=== PATIENT | female | born 1980 | race Caucasian/White ===

== ENCOUNTER 2017-11-11 20:11 | Emergency (ER) | payer BC ==
[~2017-11-11] VITALS: Ht 165.1 cm; Wt 104.5 kg
[2017-11-11 20:11] VITALS: BP 119/79; PULSE 100; RESP 16; TEMP 98.3; O2SAT 98
--- NOTE | 2017-11-11 21:55 | PD ---
HPI Chief Complaint: Cold / Flu Symptoms Time Seen by Provider: 21:54 Travel History International Travel<30 days: No Contact w/Intl Traveler<30days: No Traveled to known affect area: No History of Present Illness HPI 37-year-old female presents to the emergency department for evaluation of nasal congestion, facial pain, body aches worsening over last 2 days. Patient has a subjective fever. Patient denies any nausea or vomiting. Denies any chest pain or tightness. She has no other symptoms to report at this time. [facility] Past Medical History Medical History: Denies Significant Hx ?: Not Past Surgical History Hysterectomy: Yes Social History Tobacco Use: No Allergies-Medications (Allergen,Severity, Reaction): Coded Allergies: No Known Allergies (Unverified , 11/11/17) Reported Meds & Prescriptions Reported Meds & Active Scripts Active Mometasone Nasal Bartley 50 Mcg/Act Bartley 2 Bartley EACH NARE DAILY Augmentin (Amoxicillin-Clavulanate) 875-125 Mg Tab 1 Tab PO BID 10 Days Review of Systems Except as stated in HPI: all other systems reviewed are Neg Physical Exam Narrative GENERAL: Well-nourished, well-developed female patient in no acute distress SKIN: Focused skin assessment warm/dry. HEAD: Normocephalic. Tenderness elicited to palpation of the maxillary sinuses. EYES: No scleral icterus. No injection or drainage. ENT: Mucosa pink and moist. Mild erythema without exudates. No uvular edema. No uvular, palatal, or tonsillar deviation. Airway patent. Nasal turbinates appear inflamed without nasal blood, purulent drainage or septal hematoma. NECK: Supple, trachea midline. No JVD or lymphadenopathy. CARDIOVASCULAR: Regular rate and rhythm without murmurs, gallops, or rubs. RESPIRATORY: Breath sounds equal bilaterally. No accessory muscle use. GASTROINTESTINAL: Abdomen soft, non-tender, nondistended. MUSCULOSKELETAL: No cyanosis, or edema. BACK: Nontender without obvious deformity. No CVA tenderness. Data Data Last Documented VS Orders Orders Influenzae A/B Antigen (11/11/17 22:02) Chest, Single Ap (11/11/17 ) Albuterol Neb (Albuterol Neb) (11/11/17 22:15) Ed Discharge Order (11/11/17 22:53) MDM Medical Decision Making Medical Screen Exam Complete: Yes Emergency Medical Condition: Yes Medical Record Reviewed: Yes Differential Diagnosis Common cold versus pneumonia versus influenza versus sinusitis bacterial versus viral Narrative Course 37-year-old female presents to the emergency department for evaluation. Physical exam history are consistent with a sinusitis. Patient be treated as such. She is encouraged follow-up with primary care provider and return immediately with any acute worsening symptoms. Diagnosis Primary Impression: Sinusitis, acute maxillary Qualified Codes: J01.00 - Acute maxillary sinusitis, unspecified Referrals: Primary Care Physician Patient Instructions: General Instructions, Sinusitis (GEN) Departure Forms: Tests/Procedures, Work Release Enter return to work date: Nov 13, 2017 Additional Instructions: Humidified air may help to alleviate symptoms Follow-up with your primary care provider Tylenol or ibuprofen as structural the package as needed for fever and/or polyp Return immediately with any acute worsening of symptoms Med/Other Pt SpecificInfo: Prescription(s) given Scripts Mometasone Nasal Bartley (Mometasone Nasal Bartley) 50 Mcg/Act Bartley 2 SPRAY EACH NARE DAILY for Allergy Management, #1 BOTTLE 0 Refills Prov: Marychuy Paz 11/11/17 Amoxicillin-Clavulanate (Augmentin) 875-125 Mg Tab 1 TAB PO BID for Infection for 10 Days, #20 TAB 0 Refills Prov: Marychuy Paz 11/11/17 Disposition: 01 DISCHARGE HOME Condition: Stable Marychuy Paz Nov 11, 2017 21:55
[2017-11-11] MEDS ORDERED: RESP: ALBUTEROL 2.5 MG/3 ML NEB (SCH) NEB ONE (22:15)
--- NOTE | 2017-11-11 22:22 | RADRPT ---
EXAM DATE/TIME: 11/11/2017 22:13 [place] COMPARISON: No previous studies available for comparison. INDICATIONS : Shortness of breath. Flu-like symptoms. MEDICAL HISTORY : None. SURGICAL HISTORY : None. ENCOUNTER: Initial ACUITY: 3 days PAIN SCORE: 5/10 LOCATION: Bilateral chest FINDINGS: A single view of the chest demonstrates the lungs to be symmetrically aerated without evidence of mas s, infiltrate or effusion. The cardiomediastinal contours are unremarkable. Osseous structures are intact. CONCLUSION: No acute disease. Sg Damon MD on November 11, 2017 at 22:19 Board Certified Radiologist. This report was verified electronically.
[2017-11-11] MEDS ORDERED: AUGM875T3 PO (22:57)
[2017-11-11] MEDS ORDERED: MOME1SPR2 EACH NARE (22:57)
== END 2017-11-11 23:11 | disposition home or self-care (01) ==
LOC: NEPD 20:11
DX: J01.00 Acute maxillary sinusitis, unspecified (principal)
CPT/HCPCS: 71045; 87804; 94664; 99284; J7613